=== PATIENT | female | born 1995 | race African-American/Black ===

== ENCOUNTER 2021-07-22 07:58 | Emergency (ER) | payer OTHER, SELFPAY ==
[2021-07-22 08:10] VITALS: BP 112/68; PULSE 89; RESP 14; TEMP 36.5; O2SAT 100
--- NOTE | 2021-07-22 08:11 | ED.DENTAL ---
HPI - Dental/Oral General Chief complaint: Dental/Oral Stated complaint: Dental pain Time Seen by Provider: 07/22/21 08:11 Source: patient Mode of arrival: ambulatory Limitations: no limitations History of Present Illness HPI Narrative: Patient is a 26-year-old female presenting for evaluation of right upper molar dental pain. Patient reports her wisdom teeth are growing in and she is experiencing some pain in her right upper molars, with pain in her right ear as well. She denies discharge from the ear. Pain has been present over the past 2 weeks. She denies fever, chills, nausea or vomiting. She denies any current neck pain or swelling. No difficulty swallowing. She has been able to eat and drink food. She also feels like her wisdom tooth is coming in on the left upper molar as well but is not having as much pain on that side. She denies any significant facial pain or redness. She has not been taking any medication for pain. Denies recent fall or injury to the mouth. No discharge from the ear. No rhinorrhea, congestion, sore throat. Related Data Allergies Allergy/AdvReac Type Severity Reaction Status Date / Time No Known Allergies Allergy Unverified 07/22/21 08:14 Review of Systems Review of Systems: CONSTITUTIONAL: Denies fever, chills, or sweats. EYES: Denies visual changes, redness, or discharge. ENT: Denies rhinorrhea, congestion, sore throat, or otalgia. CARDIOVASCULAR: Denies chest pain RESPIRATORY: Denies cough or dyspnea. GASTROINTESTINAL: Denies abdominal pain GENITOURINARY: Denies dysuria or hematuria. SKIN: Denies rash or itching. NEUROLOGIC: Denies headache [facility] Social History Social History (Updated 07/22/21 @ 08:30 by Kiara Britt MD) Smoking status: Never smoker Alcohol intake: never Substance use: never Gender identity (if verbalized by the patient): Female Exam Narrative: GENERAL: Awake, alert, conversant HEAD: Normocephalic, atraumatic. EYES: PERRLA and EOMI. ENT: Nares clear, no rhinorrhea or epistaxis. Mucous membranes moist. Uvula is midline. No trismus. No significant facial edema. There is molar present, molar 1, tender, no significant fracture. Molar 16 also present, partially erupted. Tympanic membranes are clear bilaterally without effusion, perforation, significant erythema. NECK: Supple. No lymphadenopathy. Full flexion extension without limitation. No neck rigidity. CHEST: No respiratory distress, breathing even and non labored HEART: Regular rate, sinus rhythm ABDOMEN:Non distended, non tender EXTREMITIES: Normal range of motion. No edema. SKIN: Warm, dry, no rash. NEURO:No focal deficits. Alert and oriented x3 Course Vital Signs Vital signs: Vital Signs Temperature 36.5 C 07/22/21 08:10 Pulse Rate 89 07/22/21 08:10 Respiratory Rate 14 07/22/21 08:10 Blood Pressure 112/68 07/22/21 08:10 Pulse Oximetry 100 07/22/21 08:10 Temperature 36.5 C 07/22/21 08:10 Pulse Rate 89 07/22/21 08:10 Respiratory Rate 14 07/22/21 08:10 Blood Pressure 112/68 07/22/21 08:10 Pulse Oximetry 100 07/22/21 08:10 MDM - Dental/Oral MDM Narrative Medical decision making narrative: Patient's pain is consistent with dental caries. At the time of assessment there are no signs of systemic illness, no focal signs of space-occupying abscess or lesions, no signs of Santos angina or other concerning retropharyngeal infection. Tympanic membrane on the right is without evidence of infection, left is also normal-appearing. She has no neck rigidity or meningitic signs. The patient is controlling her secretions well without signs of airway compromise. Patient is thought reasonable for outpatient follow-up with dental evaluation. Patient given oral antibiotics and medication for analgesia. Differential Diagnosis Differential diagnosis: Likely gingival abscess, dental caries, toothache, dental abscess and fracture of tooth Discharge Plan Discharge Clinic
[2021-07-22 08:36] VITALS: BP 102/69; PULSE 80; RESP 14; TEMP 36.5; O2SAT 100
== END 2021-07-22 08:38 | disposition home or self-care (01) ==
PROVIDERS: Emergency Provider Emergency Medicine
DX: K08.89 Other specified disorders of teeth and supporting structures (principal)
CPT/HCPCS: 99283

== ENCOUNTER 2022-09-30 17:47 | Emergency (ER) | payer OTHER, SELFPAY ==
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
[2022-09-30 18:20] VITALS: BP 128/94; PULSE 84; RESP 18; TEMP 36.6; O2SAT 100
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
[2022-09-30] MEDS: ACETAMINOPHEN 500 MG TABLET 1000 MG PO (20:02)
[2022-09-30] MEDS: diazePAM INJ (*CRX) 10 MG/2 ML SYRINGE 5 MG IM (20:03)
== END 2022-09-30 21:17 | disposition home or self-care (01) ==
PROVIDERS: Emergency Provider Physician Assistant
DX: S86.911A Strain of unspecified muscle(s) and tendon(s) at lower leg level, right leg, initial encounter (principal); F41.9 Anxiety disorder, unspecified; V89.2XXA Person injured in unspecified motor-vehicle accident, traffic, initial encounter
CPT/HCPCS: 70450; 72125; 73564; 73590; 96372; 99284; A9270; J3360

== ENCOUNTER 2024-01-15 17:30 | Emergency (ER) | payer OTHER, SELFPAY ==
[2024-01-15 17:31] VITALS: BP 149/99; PULSE 88; RESP 16; TEMP 36.3; O2SAT 100
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
== END 2024-01-15 18:37 | disposition left against medical advice (07) ==
DX: Z53.21 Procedure and treatment not carried out due to patient leaving prior to being seen by health care provider (principal)
CPT/HCPCS: 99199

== ENCOUNTER 2024-11-06 15:52 | Emergency (ER) | payer OTHER, SELFPAY ==
--- OUTSIDE RECORDS SUMMARY | 2024-11-06 15:55 | XMS_ITS | Clinical Summary ---
Author Organization [facility] at the [facility] Office Center Address [address] [place] [address] Care Team Providers Care Marketing Strategy Lead Name Role Phone Geovanna Sauceda Primary Care Provider [phone]- [phone] Allergies No known active allergies Medications escitalopram (LEXAPRO) 10 mg tabletIndication s:Severe episode of recurrent major depressive disorder, without psychotic features (HCC) Take 1 tablet (10 mg total) by mouth daily 90 tablet 4 02/26/2022 Active Active Problems Problem Noted Date Diagnosed Date BMI 32.0-32.9,adult 02/26/2022 Constipation 02/26/2022 Assessment & Plan (02/26/2022 3:26 PM CDT): Will evaluate further with labs and imaging, will notify pt of results as they become available Will refer to gi for further evaluation and treatment Neck pain 02/26/2022 Assessment & Plan (02/26/2022 3:27 PM CDT): Will evaluate further with xrays Will refer to PT Abdominal pain 02/26/2022 Assessment & Plan (02/26/2022 3:26 PM CDT): Will evaluate further with labs and imaging, will notify pt of results as they become available Hip pain, right 02/26/2022 Assessment & Plan (02/26/2022 3:27 PM CDT): Will evaluate further with xrays Will refer to PT Severe episode of recurrent major depressive disorder, without psychotic features 02/26/2022 Assessment & Plan (02/26/2022 3:27 PM CDT): Will initiate lexapro every day She was given info for [employer] and encouraged to find a counselor Acute bilateral low back pain with right-sided s ciatica 02/26/2022 Assessment & Plan (02/26/2022 3:26 PM CDT): Will evaluate further with xrays Will refer to PT Resolved Problems Problem Noted Date Diagnosed Date Resolved Date Encounter to establish care 02/26/2022 03/30/2022 Family History Medical History Relation Name Comments Diabetes Maternal Grandmother Diabetes Mother Relation Name Status Comments Maternal Grandmother Mother Social History Tobacco Use Types Packs/Day Years Used Date Smoking Tobacco: Never Smokeless Tobacco: Never AUDIT-C Answer Date Recorded Q1: How often do you have a drink containing alc ohol? Monthly or less 02/26/2022 Q2: How many drinks containi ng alcohol do you have on a typical day when you are drinking? 1 or 2 02/26/2022 Q3: How often do you have si x or more drinks on one occasion? 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 Gender Identity Not on file Sexual Orientation Not on file Obstetrics History Last Filed Vital Signs Vital Sign Reading Time Taken Comments Blood Pressure 124/86 02/26/2022 1:26 PM CDT Pulse 83 02/26/2022 1:26 PM CDT Temperature 36.8 C (98.3 F) 02/26/2022 1:26 PM CDT Respiratory Rate - - Oxygen Saturation 99% 02/26/2022 1:26 PM CDT Inhaled Oxygen Concentration - - Weight 94.8 kg (209 lb) 02/26/2022 1:26 PM CDT Height 170.2 cm (5' 7 ) 02/26/2022 1:26 PM CDT Body Mass Index 32.73 02/26/2022 1:26 PM CDT Plan of Treatment Health Maintenance Due Date Last Done Comments Cervical Cancer Screening 1994 DTaP/Tdap/Td Vaccine (1 - Tdap) 2005 Varicella Vaccines (1 of 2 - 13+ 2-dose series) 2007 Hepatitis B Screening 2012 Regular Well Visit/Exam 18-64 2012 Depression Screening 02/26/2023 02/26/2022 Influenza Vaccine (#1) 2024 Hepatitis C Screening Completed 05/24/2020 HPV Vaccines Aged Out No longer eligi ble based on patient's age to complete this topic Pneumococcal vaccine <65 Aged Out No longer eligible based on patient's age to complete this topic Procedures Procedure Name Priority Date/Time Associated Diagnosis Comments HEPATITIS C ANTIBODY Routine 05/24/2020 12:47 PM CDT from Last 3 Months or Most Recently Relevant to Health Maintenance Results * Hepatitis C antibody (05/24/2020 12:47 PM CDT) Hep C Ab NONREACT NONREACTIVE [facility] Comment: Siemens CentaurXP using TOYIN (chemiluminescent immunoassay) technology. NONREACTIVE: Antibodies to Hepatitis C not detected. This does not exclude early acute Hepatitis C infection, possibility of exposure to Hepatitis C, antibodies below detection limit, or to lack of antibody reactivity to the antigen used in this assay. EQUIVOCAL: Antibodies to Hepatitis C may or may not be present. Sample to be confirmed by real-time PCR method. REACTIVE: Antibodies to Hepatitis C detected.Sample to be confirmed by real-time PCR method. 05/24/2020 12:4 7 PM CDT 05/24/2020 1:29 PM CDT Narrative Resulting Agency Comment CLI Estelita Florian MD LAB MICROBIOLOGY - GENERAL [place] [address], [facility] [phone] from Last 3 Months or Most Recently Relevant to Health Maintenance Insurance [facility] Care Teams Marketing Strategy Lead Relationship Specialty Start Date End Date Geovanna Sauceda PA PCP - General Paragliding Instructor 02/24/22
--- OUTSIDE RECORDS SUMMARY | 2024-11-06 15:55 | XMS_ITS | Referral Summary ---
Author Organization [facility] at the [facility] Office Center Address [address] [place] [address] Care Team Providers Care Rn Call Center Name Role Phone Geovanna Sauceda Primary Care Provider +1- [phone] Allergies No known active allergies Medications escitalopram [...] every day She was given info for [employer] and encouraged to find a counselor Acute bilateral low back pain with right-sided s ciatica 02/26/2022 Assessment & Plan (02/26/2022 3:26 PM CDT): Will evaluate further with xrays Will refer to PT Resolved Problems Problem Noted Date Diagnosed Date Resolved Date Encounter to establish care 02/26/2022 03/30/2022 Social History Tobacco Use Types Packs/Day Years [...] on file 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 Gender Identity Not on file Sexual Orientation Not on file Last Filed Vital Signs Vital Sign Reading [...] 02/26/2022 1:26 PM CDT Plan of Treatment Not on file Procedures Procedure Name Priority Date/Time Associated Diagnosis Comments HEPATITIS C ANTIBODY Routine 05/24/2020 12:47 PM CDT from Last 3 Months or Most Recently Relevant to Health Maintenance Results * Hepatitis C antibody (05/24/2020 12:47 PM CDT) Hep C Ab NONREACT NONREACTIVE [facility] Comment: Siemens CentaurXP using TOYIN (chemiluminescent immunoassay) [...] PM CDT Narrative Resulting Agency Comment CLI us Estelita Florian MD LAB MICROBIOLOGY - GENERAL ORDERABLES Final Result [facility] [address] [place] [address], [facility] [phone] from Last 3 Months or Most Recently Relevant to Health Maintenance Insurance [facility] Care Teams Rn Call Center Relationship Specialty Start Date End Date Geovanna Sauceda PA PCP - General Coating And Baking Operator 02/24/22
[2024-11-06 15:56] VITALS: BP 149/84; PULSE 74; RESP 18; TEMP 36.5; O2SAT 100
--- NOTE | 2024-11-06 18:10 | PC.NURSE ---
[id number] pt called for room placement, not in waiting room
--- OUTSIDE RECORDS SUMMARY | 2024-11-06 18:19 | XMS_ITS | Referral Summary ---
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 Gender Identity Not on file Sexual Orientation [...] PM CDT) Hep C Ab NONREACT NONREACTIVE [facility] Comment: Siemens CentaurXP using TOYIN (chemiluminescent immunoassay) [...] LAB MICROBIOLOGY - GENERAL ORDERABLES Final Result [facility] [address] [place] [address], [facility] [phone] from Last 3 Months or Most Recently Relevant to Health Maintenance Insurance [facility] Care Teams Electronic Assembler Group Leader Relationship Specialty Start Date End Date Geovanna Sauceda PA PCP - General Rope Making Machine Operator 02/24/22
--- OUTSIDE RECORDS SUMMARY | 2024-11-06 18:19 | XMS_ITS | Clinical Summary ---
Author Organization [facility] at the [facility] Office Center Address [address] [place] [address] Care Team Providers Care Window Clerk Name Role Phone Geovanna Sauceda Primary Care Provider +1- [phone] Allergies No known active allergies Medications escitalopram [...] every day She was given info for [employer] and encouraged to find a counselor Acute [...] on file Legal Sex Female 6:08 PM CONSULTING SOLUTION DIRECTOR Gender Identity Not on file Sexual Orientation [...] PM CDT) Hep C Ab NONREACT NONREACTIVE [facility] Comment: Siemens CentaurXP using TOYIN (chemiluminescent [...] LAB MICROBIOLOGY - GENERAL [place] [address], [facility] [phone] from Last 3 Months or Most Recently Relevant to Health Maintenance Insurance [facility] Care Teams Window Clerk Relationship Specialty Start Date End Date Geovanna Sauceda PA PCP - General Coding Support Specialist 02/24/22
== END 2024-11-06 18:00 | disposition left against medical advice (07) ==
DX: O20.9 Hemorrhage in early pregnancy, unspecified (principal)
CPT/HCPCS: 99199